=== PATIENT | female | born 1960 | race African-American/Black ===

== ENCOUNTER 2016-09-25 19:52 | Emergency (ER) | payer BC, OTHER | END 2016-09-25 20:10 | disposition home or self-care (01) | LOC: CFTX 19:52 | DX: M25.521 Pain in right elbow (principal); M25.522 Pain in left elbow; M25.561 Pain in right knee; M25.562 Pain in left knee; M25.571 Pain in right ankle and joints of right foot; M25.572 Pain in left ankle and joints of left foot | CPT/HCPCS: 96372; 99283; J1885 ==

== ENCOUNTER 2016-12-23 07:20 | Emergency (ER) | payer BC, OTHER | END 2016-12-23 08:30 | disposition home or self-care (01) | LOC: CFTX 07:20 → CED 07:20 → CFTX 07:58 | DX: M25.512 Pain in left shoulder (principal); M25.511 Pain in right shoulder; M79.641 Pain in right hand; M79.642 Pain in left hand | CPT/HCPCS: 96372; 99283; J1885 ==